=== PATIENT | female | born 1985 | race American Indian/Alaskan Native ===

== ENCOUNTER 2018-12-29 05:56 | Observation (INO) | payer MEDICAID ==
[2018-12-29 06:34] LABS: Basophils % (Auto) 0.3 % (0.0-1.8); Eosinophils % (Auto) 0.3 % (0.0-4.3); Hematocrit 38.4 % (30.3-42.9); Hemoglobin 13.2 gm/dl (10.1-14.3); Lymphocytes # (Auto) 2.3 K/mm3 (1.2-5.4); Lymphocytes % (Auto) 23.7 % (13.4-35.0); Mean Corpuscular HGB Conc 34 % (30-34); Mean Corpuscular Volume 92 fl (79-97); Monocytes # (Auto) 0.5 K/mm3 (0.0-0.8); Monocytes % (Auto) 4.9 % (0.0-7.3); Platelet Count 252 K/mm3 (140-440); Red Blood Count 4.17 M/mm3 (3.65-5.03); Red Cell Distribution Width 13.4 % (13.2-15.2)
[2018-12-29 06:51] LABS: Alanine Aminotransferase 12 units/L (7-56); Albumin 3.8 g/dL (3.9-5); BUN/Creatinine Ratio 10; Blood Urea Nitrogen 7 mg/dL (7-17); Calcium 9.5 mg/dL (8.4-10.2); Hemolysis Index 6
[2018-12-29 08:37] LABS: Bilirubin,Urine NEG (Negative); Blood,Urine LG (Negative); Color,Urine Yellow (Yellow); Mucus,Urine 3+ /HPF; Urobilinogen,Urine < 2.0 mg/dL (<2.0)
[2018-12-29 08:42] LABS: Protein,Urine >500 mg/dL (Negative); RBC,Urine > 182.0 /HPF (0.0-6.0)
[2018-12-29] MEDS ORDERED: DILAUDID IV ONE ×6 (09:43→16:27)
[2018-12-29] MEDS ORDERED: NACL 0.9% 1000 ML 1,000 ML IV ONE ×2 (09:43→13:48)
[2018-12-29] MEDS ORDERED: ZOFRAN IV ONE (09:43)
[2018-12-29 09:47] LABS: HCG Qualitative,Urine Negative (Negative)
--- NOTE | 2018-12-29 09:47 | Emergency Department Report ---
ED Abdominal Pain HPI - General Chief Complaint: Abdominal Pain Stated Complaint: ABDOMINAL PAIN Time Seen by Provider: 12/29/18 09:27 Source: patient Mode of arrival: Ambulatory Limitations: No Limitations - History of Present Illness Initial Comments: 33-year-old female with a past medical history of lupus, nephritis, pulmonary embolism, uterine fibroids, ovarian cyst, and previous myomectomy presents to the hospital with complaints of generalized abdominal pain since 4 PM yesterday. Patient started in the lower abdomen but is now generalized. Pain is Described as a constant, rated 10/10 in intensity, sharp stabbing pain with palpation. Positive associated lightheadedness, nausea, and 2 loose stools since arrival to the ED. She denies melena, hematochezia, fever, dysuria, or hematuria. She is currently on her menstrual cycle. Patient has not been sexually active in 6 months. She does not have a PMD but does see a wood pile driver operator and takes multiple meds including prednisone for lupus. Patient is also on Lovenox twice a day with last dose last night at 10pm. She does not have a DEVELOPER PROGRAMMER ANALYST doctor Severity scale (0 -10): 10 - Related Data Previous Rx's Medication Instructions Recorded Last Taken Type Sulfamethoxazole/Trimethoprim 1 each PO BID #14 tablet 08/10/14 Unknown Rx [Bactrim Ds] traMADol [Ultram 50 MG tab] 50 mg PO Q6HR PRN #14 tablet 08/10/14 Unknown Rx Magnesium Hydroxide [Milk of 30 mg PO QDAY #1 bottle 07/25/15 Unknown Rx Magnesia] Simethicone [Gas-X] 80 mg PO BID #30 tab.chew 07/25/15 Unknown Rx Amoxicillin [Trimox CAP] 500 mg PO Q8H #30 capsule 08/10/15 Unknown Rx HYDROcodone/APAP 7.5-325 [[place] 1 each PO Q6HR PRN #16 tablet 08/10/15 Unknown Rx 7.5/325] Prednisone [predniSONE 10 mg 10 mg PO .TAPER #1 tab.ds.pk 08/10/15 Unknown Rx (6-Day Pack, 21 Tabs)] Acetaminophen/Codeine [Tylenol #3] 1 tab PO Q6H PRN #10 tab 09/26/15 Unknown Rx Allergies Allergy/AdvReac Type Severity Reaction Status Date / Time shellfish derived Allergy Anaphylaxis Verified 08/10/15 19:26 ED Review of Systems ROS: Stated complaint: ABDOMINAL PAIN Other details as noted in HPI Comment: All other systems reviewed and negative ED Past Medical Hx - Past Medical History Previous Medical History?: Yes Hx Hypertension: No Hx Heart Attack/AMI: No Hx Diabetes: No Hx Deep Vein Thrombosis: No Hx Pulmonary Embolism: Yes Hx GERD: No Hx Liver Disease: No Hx Renal Disease: No Hx Sickle Cell Disease: No Hx Seizures: No Hx Kidney Stones: No Hx Psychiatric Treatment: No Hx Asthma: No Hx Tuberculosis: No Hx HIV: No Additional medical history: Lupus, Nepritis,. Uterine Fibroids. Ovarian Cyst - Surgical History Past Surgical History?: Yes Hx Coronary Stent: No Hx Open Heart Surgery: No Hx Pacemaker: No Hx Internal Defibrillator: No Hx Cholecystectomy: No Hx Appendectomy: No Hx Breast Surgery: No Additional Surgical History: myomectomy - Social History Smoking Status: Never Smoker Substance Use Type: None - Medications Home Medications: Home Medications Medication Instructions Recorded Confirmed Last Taken Type Sulfamethoxazole/Trimethoprim 1 each PO BID #14 tablet 08/10/14 Unknown Rx [Bactrim Ds] traMADol [Ultram 50 MG tab] 50 mg PO Q6HR PRN #14 tablet 08/10/14 Unknown Rx Magnesium Hydroxide [Milk of 30 mg PO QDAY #1 bottle 07/25/15 Unknown Rx Magnesia] Simethicone [Gas-X] 80 mg PO BID #30 tab.chew 07/25/15 Unknown Rx Amoxicillin [Trimox CAP] 500 mg PO Q8H #30 capsule 08/10/15 Unknown Rx HYDROcodone/APAP 7.5-325 [[place] 1 each PO Q6HR PRN #16 tablet 08/10/15 Unknown Rx 7.5/325] Prednisone [predniSONE 10 mg 10 mg PO .TAPER #1 tab.ds.pk 08/10/15 Unknown Rx (6-Day Pack, 21 Tabs)] Acetaminophen/Codeine [Tylenol #3] 1 tab PO Q6H PRN #10 tab 09/26/15 Unknown Rx ED Physical Exam - General Limitations: No Limitations - Other Other exam information: General: No limitations, patient is alert in no acute distress Head exam: Atraumatic, normocephalic Eyes exam: Normal appearance, nonicteric sclera ENT: Moist mucous membrane, normal oropharynx Neck exam: Normal inspection, full range of motion, no meningismus nontender Respiratory exam: Clear to auscultation bilateral, no wheezes, rales, crackles Cardiovascular: Normal rate and rhythm, normal heart sounds Abdomen: Soft, nondistended, generalized abdominal tenderness greatest in the lower abdomen, with normal bowel sounds, no rebound, or guarding Extremity: Full range of motion normal inspection no deformity Back: Normal Inspection, full range of motion, no tenderness Neurologic: Alert, oriented x3, cranial nerves intact, no motor or sensory deficit Psychiatric: normal affect, normal mood Skin: Warm, dry, intact ED Course Vital Signs 12/29/18 12/29/18 12/29/18 06:01 12:50 12:52 Temperature 97.6 F Pulse Rate 90 120 H Respiratory 20 32 H 17 Rate Blood Pressure 111/61 107/74 O2 Sat by Pulse 98 99 Oximetry 12/29/18 12/29/18 12/29/18 12:53 12:56 13:00 Temperature Pulse Rate 122 H 125 H 125 H Respiratory 18 22 25 H Rate Blood Pressure 107/74 107/74 107/74 O2 Sat by Pulse 99 98 100 Oximetry 12/29/18 12/29/18 12/29/18 13:06 13:10 13:16 Temperature Pulse Rate 128 H 133 H 136 H Respiratory 24 14 19 Rate Blood Pressure 107/74 107/74 107/74 O2 Sat by Pulse 100 99 100 Oximetry - Reevaluation(s) Reevaluation #1: 12/29/18 13:02 Systolic pressure 107. Heart rate now 118-120 range. This is after 1 L of normal saline. Dr. Martinez at the bedside - Consultations Consultation #1: 12/29/18 12:28 Aircraft Engine Technician biofuels plant construction worker paged for stat Consultation #2: 12/29/18 12:50 case d/w Dr sales with IR. carissa eval ct Consultation #3: 12/29/18 12:59 case d/w Dr Jiménez gen surgeon. he state he is available if needed. 12/29/18 13:44 at this time I received a call from [place] fish bin tender Dr Johnson covering the pt's primary fish bin tender Dr. Mccullough. He states he received a call from the family members that she was in the hospital here and there was a request for him to call. I informed him of patient's diagnosis of a hemorrhagic ovarian cyst and need for emergent surgery. I also informed him that her kidney function is not an acute issue at this time. He agrees with management as recommended by covering surgical team. ED Medical Decision Making - Lab Data Result diagrams: 12/29/18 12:47 12/29/18 06:09 Lab Results 12/29/18 12/29/18 12/29/18 Range/Units 06:09 06:09 07:19 WBC 9.6 (4.5-11.0) K/mm3 RBC 4.17 (3.65-5.03) M/mm3 Hgb 13.2 (10.1-14.3) gm/dl Hct 38.4 (30.3-42.9) % MCV 92 (79-97) fl MCH 32 (28-32) pg MCHC 34 (30-34) % RDW 13.4 (13.2-15.2) % Plt Count 252 (140-440) K/mm3 Lymph % (Auto) 23.7 (13.4-35.0) % [place] % (Auto) 4.9 (0.0-7.3) % Eos % (Auto) 0.3 (0.0-4.3) % Baso % (Auto) 0.3 (0.0-1.8) % Lymph # 2.3 (1.2-5.4) K/mm3 [place] # 0.5 (0.0-0.8) K/mm3 Eos # 0.0 (0.0-0.4) K/mm3 Baso # 0.0 (0.0-0.1) K/mm3 Seg Neutrophils % 70.8 H (40.0-70.0) % Seg Neutrophils # 6.8 (1.8-7.7) K/mm3 Sodium 141 (137-145) mmol/L Potassium 3.8 (3.6-5.0) mmol/L Chloride 104.3 (98-107) mmol/L Carbon Dioxide 21 L (22-30) mmol/L Anion Gap 20 mmol/L BUN 7 (7-17) mg/dL Creatinine 0.7 (0.7-1.2) mg/dL Estimated GFR > 60 ml/min BUN/Creatinine Ratio 10 % Glucose 139 H (65-100) mg/dL Calcium 9.5 (8.4-10.2) mg/dL Total Bilirubin 0.30 (0.1-1.2) mg/dL AST 17 (5-40) units/L ALT 12 (7-56) units/L Alkaline Phosphatase 45 (35-129) units/L Total Protein 6.8 (6.3-8.2) g/dL Albumin 3.8 L (3.9-5) g/dL Albumin/Globulin Ratio 1.3 % Urine Color Yellow (Yellow) Urine Turbidity Clear (Clear) Urine pH 5.0 (5.0-7.0) Ur Specific [place] 1.039 H (1.003-1.030) Urine Protein >500 (Negative) mg/dL Urine Glucose (UA) Neg (Negative) mg/dL Urine Ketones Neg (Negative) mg/dL Urine Blood Lg (Negative) Urine Nitrite Neg (Negative) Urine Bilirubin Neg (Negative) Urine Urobilinogen < 2.0 (<2.0) mg/dL Ur Leukocyte Esterase Neg (Negative) Urine WBC (Auto) 24.0 H (0.0-6.0) /HPF Urine RBC (Auto) > 182.0 (0.0-6.0) /HPF U Epithel Cells (Auto) 2.0 (0-13.0) /HPF Urine Mucus 3+ /HPF Urine HCG, Qual (Negative) 12/29/18 Range/Units 07:49 WBC (4.5-11.0) K/mm3 RBC (3.65-5.03) M/mm3 Hgb (10.1-14.3) gm/dl Hct (30.3-42.9) % MCV (79-97) fl MCH (28-32) pg MCHC (30-34) % RDW (13.2-15.2) % Plt Count (140-440) K/mm3 Lymph % (Auto) (13.4-35.0) % [place] % (Auto) (0.0-7.3) % Eos % (Auto) (0.0-4.3) % Baso % (Auto) (0.0-1.8) % Lymph # (1.2-5.4) K/mm3 [place] # (0.0-0.8) K/mm3 Eos # (0.0-0.4) K/mm3 Baso # (0.0-0.1) K/mm3 Seg Neutrophils % (40.0-70.0) % Seg Neutrophils # (1.8-7.7) K/mm3 Sodium (137-145) mmol/L Potassium (3.6-5.0) mmol/L Chloride (98-107) mmol/L Carbon Dioxide (22-30) mmol/L Anion Gap mmol/L BUN (7-17) mg/dL Creatinine (0.7-1.2) mg/dL Estimated GFR ml/min BUN/Creatinine Ratio % Glucose (65-100) mg/dL Calcium (8.4-10.2) mg/dL Total Bilirubin (0.1-1.2) mg/dL AST (5-40) units/L ALT (7-56) units/L Alkaline Phosphatase (35-129) units/L Total Protein (6.3-8.2) g/dL Albumin (3.9-5) g/dL Albumin/Globulin Ratio % Urine Color (Yellow) Urine Turbidity (Clear) Urine pH (5.0-7.0) Ur Specific [place] (1.003-1.030) Urine Protein (Negative) mg/dL Urine Glucose (UA) (Negative) mg/dL Urine Ketones (Negative) mg/dL Urine Blood (Negative) Urine Nitrite (Negative) Urine Bilirubin (Negative) Urine Urobilinogen (<2.0) mg/dL Ur Leukocyte Esterase (Negative) Urine WBC (Auto) (0.0-6.0) /HPF Urine RBC (Auto) (0.0-6.0) /HPF U Epithel Cells (Auto) (0-13.0) /HPF Urine Mucus /HPF Urine HCG, Qual Negative (Negative) - Radiology Data Radiology results: report reviewed PROCEDURE: CT ABDOMEN PELVIS W CON TECHNIQUE: CT of the abdomen and pelvis was performed. IV contrast was administered. No oral contrast was administered. Axial images and coronal and sagittal reformatted images were obtained. HISTORY: gen abd pain, nausea, loose stools,lupus COMPARISON: None FINDINGS: The visualized lung bases are clear. The visualized liver, spleen, pancreas, adrenal glands and kidneys demonstrate no significant abnormality. There is a moderate amount of complex, hyperdense ascites throughout the abdomen and pelvis which is probably hemorrhagic fluid. There is a complex right adnexal mass measuring 6.8 x 5.8 x 7.1 cm. It demonstrates a thick wall and a fluid fluid level suggesting a hemorrhagic mass or cyst. Images demonstrate active extravasation of contrast material into the pelvis indicating active contrast bleeding from this lesion. There are several calcified small uterine masses which are likely fibroids. There is fluid containing distended bowel and colon with air-fluid levels. Most likely this is an ileus. Obstruction less likely. There is no free air. The visualized liver, spleen, pancreas, adrenal glands and kidneys demonstrate no significant abnormality. IMPRESSION: Actively bleeding large hemorrhagic mass in right adnexa. There is moderate hemoperitoneum. Fluid containing distended bowel and colon, most likely an ileus. Obstruction less likely. - Medical Decision Making Patient presents with hemorrhagic ovarian cyst with hemoperitoneum. Ileus also likely secondary to hemoperitoneum. Repeat CBC, coags, and type and screen pending. Case discussed with DEVELOPER PROGRAMMER ANALYST, interventional radiology, and gen surgery. Last dose of Lovenox is greater than 12 hours at this point therefore protamine sulfate not likely needed. We'll defer to the admitting team to determine if further anticoagulation is necessary. Patient requiring multiple doses of Dilaudid for pain relief. - Differential Diagnosis colitis, gastroenteritis, appendicitis, menstrual cramps, ovarian cysts Critical Care Time: No Critical care attestation.: If time is entered above; I have spent that time in minutes in the direct care of this critically ill patient, excluding procedure time. ED Disposition Clinical Impression: Hemorrhagic cyst of ovary, Hemoperitoneum, prison (current) use of anticoagulants Disposition: OP ADMIT IP TO THIS HOSP Is pt being admited?: Yes Condition: Stable Time of Disposition: 13:00 (DR Man Martinez)
--- NOTE | 2018-12-29 12:36 | Cat Scan Report ---
PROCEDURE: CT ABDOMEN PELVIS W CON TECHNIQUE: CT of the abdomen and pelvis was performed. IV contrast was administered. No oral contrast was administered. Axial images and coronal and sagittal reformatted images were obtained. HISTORY: gen abd pain, nausea, loose stools,lupus COMPARISON: None FINDINGS: The visualized lung bases are clear. The visualized liver, spleen, pancreas, adrenal glands and kidneys demonstrate no significant abnorma lity. There is a moderate amount of complex, hyperdense ascites throughout the abdomen and pelvis which is probably hemorrhagic fluid. There is a complex right adnexal mass measuring 6.8 x 5.8 x 7.1 cm. It demonstrates a thick wall and a fluid fluid level suggesting a hemorrhagic mass or cyst. Images demonstrate active extravasation of contrast material into the pelvis indicating active contrast bleeding from this lesion. There are several calcified small uterine masses which are likely fibroids. There is fluid containing distended bowel and colon with air-fluid levels. Most likely this is an ile us. Obstruction less likely. There is no free air. The visualized liver, spleen, pancreas, adrenal glands and kidneys demonstrate no significant abnorma lity. IMPRESSION: Actively bleeding large hemorrhagic mass in right adnexa. There is moderate hemoperitoneum. Fluid containing distended bowel and colon, most likely an ileus. Obstruction less likely. Dr. Slaughter informed of these findings on 12/29/2018 at 12:25 PM EST. This document is electronically signed by Silva Carballo MD., December 29 2018 12:34:09 PM ET
--- NOTE | 2018-12-29 13:11 | Short Stay Summary ---
Short Stay Documentation Date of service: 12/29/18 Narrative H&P: Pt is a 33-year-old black female LMP 12/28/18 with a past medical history of lupus, nephritis, pulmonary embolism, uterine fibroids, ovarian cyst, and previous myomectomy, presents to the hospital with complaints of generalized abdominal pain since 4 PM yesterday. Pain started in the lower abdomen but is now generalized. Pain is Described as a constant, rated 10/10 in intensity, sharp stabbing pain with palpation, and is associated with lightheadedness, nausea, and 2 loose stools since arrival to the ED. She denies melena, hematochezia, fever, dysuria, or hematuria. She is currently on her menstrual cycle. Patient has not been sexually active in 6 months. She does not have a PMD but does see a project manager industrial and takes multiple meds including Prednisone for lupus. She is also on Lovenox twice a day with last dose last night at 10pm. CT Scan showed: There is a moderate amount of complex, hyperdense ascites throughout the abdomen and pelvis which is probably hemorrhagic fluid. There is a complex right adnexal mass measuring 6.8 x 5.8 x 7.1 cm. It demonstrates a thick wall and a fluid fluid level suggesting a hemorrhagic mass or cyst. Images demonstrate active extravasation of contrast material into the pelvis indicating active contrast bleeding from this lesion. There are several calcified small uterine masses which are likely fibroids. Her labs are stable H/H - 11.4/32.9 including PT/PTT - 13.4/26.7. Will proceed to the OR for a Laparoscopic Ovarian cystectomy AUBREY. - History Principal diagnosis: Bleeding hemorrhagic ovarian cyst H&P: obtained from office Past Medical History: pulmonary embolism, other (lupus) Past Surgical History: , Other (myomectomy) Social history: no significant social history, single - Allergies and Medications Current Medications: Allergies shellfish derived Allergy (Verified 08/10/15 19:26) Anaphylaxis Home Medications Medication Instructions Recorded Confirmed Last Taken Type Sulfamethoxazole/Trimethoprim 1 each PO BID #14 tablet 08/10/14 Unknown Rx [Bactrim Ds] traMADol [Ultram 50 MG tab] 50 mg PO Q6HR PRN #14 tablet 08/10/14 Unknown Rx Magnesium Hydroxide [Milk of 30 mg PO QDAY #1 bottle 07/25/15 Unknown Rx Magnesia] Simethicone [Gas-X] 80 mg PO BID #30 tab.chew 07/25/15 Unknown Rx Amoxicillin [Trimox CAP] 500 mg PO Q8H #30 capsule 08/10/15 Unknown Rx HYDROcodone/APAP 7.5-325 [[place] 1 each PO Q6HR PRN #16 tablet 08/10/15 Unknown Rx 7.5/325] Prednisone [predniSONE 10 mg 10 mg PO .TAPER #1 tab.ds.pk 08/10/15 Unknown Rx (6-Day Pack, 21 Tabs)] Acetaminophen/Codeine [Tylenol #3] 1 tab PO Q6H PRN #10 tab 09/26/15 Unknown Rx - Physical exam General appearance: mild distress Integumentary: no rash HEENT: Atraumatic Lungs: Clear to auscultation Breasts: deferred Heart: Regular rate Gastrointestinal: tenderness, obese Female Genitourinary: deferred Rectal Exam: deferred Extremities: no ischemia, No edema Neurological: Normal speech - Brief post op/procedure progress note Date of procedure: 12/29/18 Pre-op diagnosis: 1. Pelvic pain 2. Hemorrhagic ovarian cyst 3. Hemoperitoneum Post-op diagnosis: same Procedure: 1. Laparoscopic bilateral ovarian cystectomy 2. Evacuation of hemoperitoneum Anesthesia: GETA Findings: An enlarged myomatous uterus. Approximately 300 mL of hemoperitoneum. Bilaterally enlarged cystic ovaries. Normal tubes bilaterally Surgeon: ALINE FRANCES Estimated blood loss: other (300ml) Pathology: list (right and left ovarian cysts) Specimen disposition: to lab Condition: stable - Hospital course Hospital course: Unremarkable. - Disposition Condition at discharge: Good Disposition: [id number] TO HOME OR SELFCARE - Discharge Diagnoses (1) Hemoperitoneum Status: Resolved (2) Hemorrhagic cyst of ovary Status: Resolved (3) Pelvic pain in female Status: Resolved Short Stay Discharge Plan Activity: no restrictions Diet: regular Wound: open to air, keep clean and dry Follow up with: HUBERT NERI MD [Primary Care Provider] - 3-5 Days ALINE FRANCES MD [Staff Physician] - 14 Days Prescriptions: Ferrous Sulfate [Feosol 325 MG tab] 325 mg PO BID #60 tablet oxyCODONE /ACETAMINOPHEN [Percocet 5/325 mg] 1 tab PO Q6H PRN #20 tablet PRN Reason: Pain, Moderate (4-6)
[2018-12-29 13:14] LABS: Hematocrit 32.9 % (30.3-42.9); Hemoglobin 11.4 gm/dl (10.1-14.3); Mean Corpuscular HGB Conc 35 % (30-34); Mean Corpuscular Volume 92 fl (79-97); Platelet Count 298 K/mm3 (140-440); Red Blood Count 3.57 M/mm3 (3.65-5.03); Red Cell Distribution Width 13.5 % (13.2-15.2)
[2018-12-29 13:18] LABS: INR 0.96 (0.87-1.13)
[2018-12-29 13:19] LABS: Partial Thromboplastin Time 26.7 Sec. (24.2-36.6)
[2018-12-29] MEDS ORDERED: NACL 0.9% 1000 ML 1,000 ML ONE (13:53)
[2018-12-29] MEDS ORDERED: NACL 0.9% 500 ML 500 ML IV ONE (13:54)
[2018-12-29] MEDS ORDERED: SUBLIMAZE ONE (14:32)
[2018-12-29] MEDS ORDERED: DIPRIVAN 10 MG/ML IV ONE (14:32)
[2018-12-29] MEDS ORDERED: QUELICIN ONE (14:33)
[2018-12-29] MEDS ORDERED: VERSED ONE (14:33)
[2018-12-29] MEDS ORDERED: DECADRON ONE (14:34)
[2018-12-29] MEDS ORDERED: ZOFRAN ONE (14:34)
[2018-12-29] MEDS ORDERED: XYLOCAINE MPF 2% ONE (14:34)
[2018-12-29] MEDS ORDERED: ZEMURON IV ONE (14:35)
[2018-12-29] MEDS ORDERED: NACL 0.9% IR ONE ×2 (14:55)
[2018-12-29] MEDS ORDERED: MARCAINE 0.25% INFILTRATI ONE (16:26)
[2018-12-29] MEDS ORDERED: NEO SYNEPHRINE/NS Syringe(OR USE) IV ONE (16:33)
[2018-12-29] MEDS ORDERED: TORADOL ONE (16:33)
[2018-12-29] MEDS ORDERED: BLOXIVERZ ONE ×2 (16:33)
[2018-12-29] MEDS ORDERED: TYLENOL PO PRN (16:45)
[2018-12-29] MEDS ORDERED: NORCO 5/325 PO PRN (16:45)
[2018-12-29] MEDS ORDERED: PERCOCET 5/325 PO PRN (16:45)
[2018-12-29] MEDS ORDERED: ZOFRAN IV PRN (16:45)
--- NOTE | 2018-12-29 16:45 | Operative Report ---
Operative Report Operative Report: Date of procedure: 12/29/2018 Pre-operative diagnosis: 1. Pelvic pain 2. Hemorrhagic ovarian cyst 3. H emoperitoneum Post-operative diagnosis: Same Procedure name(s): 1. Laparoscopic bilateral ovarian cystectomy 2. Evacuation of hemoperitoneum Surgeon: Jem Martinez MD Hobbing Machine Operator: None Anesthesia: Gen. endotracheal intubation by Dr. Bernardo EBL: 300 mL's (hemoperitoneum) Findings: An enlarged myomatous uterus with bilaterally cystic ovaries. Approximately 300 mL's of hemoperitoneum. Normal tubes bilaterally. Procedure: After the patient was correctly identified, she was prepped and draped in the usual sterile fashion and placed in the dorsolithotomy position. The bladder was first emptied using a straight catheter, and the speculum was placed in the vaginal vault and anterior lip of the cervix was grasped with a single-tooth tenaculum. The uterine manipulator was then placed on the tenaculum and speculum were removed. Attention was then turned to the abdomen where first a periumbilical incision was made using the skin knife. The Optiview trocar was inserted under direct visualization, and it was noted to be large amounts of blood in the peritoneal cavity. After an adequate amount of abdominal insufflation, visualization of the pelvic organs found approximately 300 mL's of hemoperitoneum which had to be evacuated before the pelvic organs could be visualized. The uterus was enlarged and myomatous with bilaterally cystic ovaries, and ovaries appeared to be normal. A suprapubic and right lateral incision was made through which 5 mm trochars were placed in order to aid in manipulation of the pelvic organs. The ovarian cysts were excised using the tripolar cautery, and the specimens were removed and sent to pathology. Copious amounts of irrigation was then performed and after good hemostasis was assured the procedure was considered complete. The Tisseel sealant was sprayed over the ovarian cystectomy sites. All instruments are removed from the abdomen, the abdomen was deflated, and the periumbilical incision was closed using 0 Vicryl suture in [id number] configuration of the fascia followed by 4-0 Monocryl suture in subcuticular fashion on the skin. The suprapubic and right lateral incisions were closed in similar fashion. Each incision was infiltrated using 0.5% Marcaine solution. The uterine manipulator was removed. The patient tolerated the procedure well and was transferred to recovery in stable condition.
[2018-12-29] MEDS: ANCEF/NS 1 GM/50 ML 1 GM/50 ML BAG IV SCH (22:06)
[2018-12-29] MEDS: TORADOL IV SCH (22:07)
[2018-12-29] MEDS: D5LR 1,000 ML IV SCH (22:14)
[2018-12-30] MEDS: TORADOL IV SCH ×2 (04:17→05:00)
[2018-12-30] MEDS: D5LR 1,000 ML IV SCH (05:44)
[2018-12-30] MEDS: ANCEF/NS 1 GM/50 ML 1 GM/50 ML BAG IV SCH (05:44)
[2018-12-30 10:44] LABS: Hematocrit 23.4 % (30.3-42.9)
[2018-12-30 15:26] VITALS: BP 119/57
== END 2018-12-30 15:50 | disposition home or self-care (01) ==
LOC: ED 05:56 → EDSTATUS 15:16 → OB 16:45
PROVIDERS: ADMIT Obstetrics & Gynecology; ATTEND Obstetrics & Gynecology
DX: N83.209 Unspecified ovarian cyst, unspecified side (principal); K66.1 Hemoperitoneum; Z98.890 Other specified postprocedural states
CPT/HCPCS: 36415; 58662; 74177; 80053; 81001; 81025; 85014; 85018; 85025; 85027; 85610; 85730; 86850; 86900; 86901; 88305; 96365; 96366; 96375; 96376; 99284; A4217; C9250; G0378; J0330; J0690; J1100; J1170; J1885; J2250; J2370; J2405; J2704; J2710; J3010; J7030; J7121; Q9967; 86920